=== PATIENT | female | born 1985 | race Caucasian/White ===

== ENCOUNTER → 2020-08-05 09:12 | Outpatient (BNVA) | payer MEDICAID, SELFPAY | PROVIDERS: Family Provider Nurse Practitioner Family; PCP Nurse Practitioner Family; Visit Provider Nurse Practitioner Family | DX: Z20.828 Contact with and (suspected) exposure to other viral communicable diseases (principal); R50.9 Fever, unspecified | CPT/HCPCS: 87400; 87635 ==

== ENCOUNTER → 2021-06-20 10:15 | Outpatient (BNVA) | payer MEDICAID, SELFPAY | PROVIDERS: Family Provider Nurse Practitioner Family; PCP Nurse Practitioner Family; Visit Provider Nurse Practitioner Family | DX: Z12.4 Encounter for screening for malignant neoplasm of cervix (principal) | CPT/HCPCS: 88175 ==

== ENCOUNTER → 2022-04-08 08:58 | Outpatient (BNVA) | payer OTHER, MEDICAID, SELFPAY | PROVIDERS: Family Provider Nurse Practitioner Family; PCP Nurse Practitioner Family; Visit Provider Nurse Practitioner Family | DX: R53.83 Other fatigue (principal); E78.5 Hyperlipidemia, unspecified; R63.5 Abnormal weight gain; D22.9 Melanocytic nevi, unspecified | CPT/HCPCS: 80053; 80061; 84439; 84443; 84481 ==

== ENCOUNTER → 2022-04-17 11:50 | Outpatient (BNVA) | payer OTHER, MEDICAID, SELFPAY | PROVIDERS: Family Provider Nurse Practitioner Family; PCP Nurse Practitioner Family; Visit Provider Nurse Practitioner Family | DX: L98.9 Disorder of the skin and subcutaneous tissue, unspecified (principal) | CPT/HCPCS: 88304 ==

== ENCOUNTER → 2022-07-24 08:48 | Outpatient (BNVA) | payer OTHER, MEDICAID, SELFPAY | PROVIDERS: Family Provider Nurse Practitioner Family; PCP Nurse Practitioner Family; Visit Provider Nurse Practitioner Family | DX: R55 Syncope and collapse (principal); N93.9 Abnormal uterine and vaginal bleeding, unspecified | CPT/HCPCS: 80053; 84439; 84443; 84481; 85025; 88175 ==

== ENCOUNTER 2023-02-07 18:48 | Inpatient (IN) | payer OTHER, SELFPAY ==
[2023-02-07 18:49] VITALS: BP 130/88; PULSE 91; RESP 16; TEMP 36.8; O2SAT 96; BMI 25.8
[2023-02-07] MEDS: OLANZapine 10 mg ODT PO (20:05)
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
[2023-02-07 20:32] LABS: Basophils % 0.3 %; Eosinophils % 0.1 %; Hematocrit 36.8 % (37.0-47.0); Hemoglobin 12.6 g/dL (11.5-15.3); Lymphocytes # 1.1 10^3/uL (0.8-4.8); Lymphocytes % 14.2 %; Mean Corpuscular HGB Conc 34.2 g/dL (30.0-36.0); Mean Corpuscular Hemoglobin 29.6 pg (28.0-34.0); Mean Corpuscular Volume 86.6 fl (81-99); Mean Platelet Volume 9.8 fL (7.4-10.4); Monocytes # 0.4 10^3/uL (0.2-0.9); Monocytes % 5.5 %; Neutrophils # 6.11 10^3/uL (1.8-7.7); Neutrophils % 79.6 %; Nucleated Red Blood Cells % 0 %; Platelet Count 233 10^3/cmm (130-400); Red Blood Count 4.25 10^6/uL (4.1-5.3); Red Cell Distribution Width 12.3 % (12.1-15.1); White Blood Count 7.7 10^3/uL (4.0-10.0)
[2023-02-07 20:33] LABS: Amphetamines Screen Urine Negative (Negative); Barbiturates Screen Urine Negative (Negative); Benzodiazepines Screen Urine Negative (Negative); Cocaine Screen Urine Negative (Negative); Opiate Screen Urine Negative (Negative); PCP Screen Urine Negative (Negative); THC Screen Urine Negative (Negative)
[2023-02-07 21:00] LABS: Anion Gap 17.3 (5-19); Blood Urea Nitrogen 12 mg/dL (6-20); Calcium 8.7 mg/dL (8.5-10.5); Carbon Dioxide 23 mmol/L (22-29); Chloride 106 mmol/L (98-107); Glomerular Filtration Rate 111.3 mL/min (90-130); Glucose 101 mg/dL (65-115); Osmolality Calculated 296 mOsm/kg (285-295); Potassium 3.3 mmol/L (3.5-5.1); Salicylate 0.4 mg/dL (3-10); Sodium 143 mmol/L (136-145); Thyroid Stimulating Hormone 0.73 uIU/mL (0.27-4.20)
[2023-02-07 21:03] LABS: Acetaminophen < 5.0 ug/mL (10-30)
--- NOTE | 2023-02-07 21:05 | PC.NURSE ---
Pt served with Copy of 96 Hour Hold rights by this nurse and security. Pt at bedside. 96 Hour Hold explained in detail and many questions answered. Pt placed in psych scrubs and belongings given to 1:1 sitter at bedside.
[2023-02-07 22:14] VITALS: BP 130/76; PULSE 82; RESP 16; O2SAT 99
[2023-02-07 22:44] VITALS: BP 108/76; PULSE 84; RESP 18; TEMP 36.8; O2SAT 99
[2023-02-08 06:00] VITALS: BP 119/74; PULSE 73; RESP 20; TEMP 36.7; O2SAT 98
[2023-02-08] MEDS: hyDROXYzine 25 mg Capsule 50 MG PO (07:33)
--- NOTE | 2023-02-08 07:38 | PC.NURSE ---
PRN VISTARIL 50 MG GIVEN PO PER PT C/O ANXIETY...TEARFUL IN ROOM, ROCKING AND CRYING, SAYING I DON'T KNOW WHY I'M HERE! STAFF ATTEMPTED TO ENCOURAGE PATIENT SHE IS IN A SAFE PLACE, WE ARE HERE TO TAKE CARE OF HER. STAFF WILL CONT TO MONITOR CLOSELY
--- NOTE | 2023-02-08 07:49 | PC.NURSE ---
during shift assessment, staff observed patient to be wearing 2 rings & a bracelet, all which are not allowed on unit. staff removed bracelet, then later observed that patient had taken her 2 rings off & placed them on the bed. staff removed the rings & placed them along with the bracelet in a bag with patient label & put in safe. items were not removed when patient admitted on the unit during night club manager
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
--- NOTE | 2023-02-08 09:31 | PC.NURSE ---
pt continues to go into other patients rooms, when asked to vacate room 127 pt refused calling out to mother, sister. deep, my friends come get me, help me. attempts to explain reasoning behind the importance of not going into other patient rooms pt became verbal upset an continued to refuse even when i informed her that i would have to get security. pt stated she did not care to bring on security . i left pt in room went to nurses station Rakel hollins and myself at that time went down to room and pt vacated room after multiple times asking her to leave. pt left room appearing to be very agitated stomping down hallway went into her room at that time.
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
--- NOTE | 2023-02-08 12:13 | PC.NURSE ---
while [facility] staff was exiting the double doors out of NPU, this patient charged the door to exit with staff member. Staff member from [facility] quickly responded and stood in the doorway preventing patient from exiting unit, staff x2 immediately intervened, came down and stood between [facility] staff & patient, asked patient to back away from exit door and return to her room. patient complied with staff request, but cont to be verbally aggressive with staff, refused PRN medication offered. This nurse notified Dr. Malin & NPU clerical manager about incident. cue selector Taylor also notified, staff plans to move patient to [facility], away from double doors.
--- NOTE | 2023-02-08 12:22 | PC.NURSE ---
pt requested shower box and change of clothes, when coming out of nurses station doorway pt asked where it was, i took one step to show pt where shower room door was, part of my body and foot still in doorway pt rushed past me partially in nurses station, pt stopped by kim edwards and myself. pt yelled across nurses station to other patient they are all liars. pt left nurses station went into shower.
[2023-02-08 14:00] VITALS: BP 95/59; PULSE 83; RESP 18; TEMP 36.3; O2SAT 97
[2023-02-08] MEDS: diphenhydrAMINE 50 mg/mL SDV 1mL IM (14:20)
[2023-02-08] MEDS: haloperidol inj 5 mg/mL INJ 1 mL IM (14:20)
[2023-02-08] MEDS: LORazepam 2 mg/mL INJ 1 mL IM (14:20)
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
--- NOTE | 2023-02-08 23:45 | PC.NURSE ---
pt stated she may need something for anxiety and sleep, suggested vistaril and trazodone, when pulled and attemped to give to pt, she refused, stated Y'all offered me that yesterday, but i'm ok now both meds wasted in Pyxis.
[2023-02-09] MEDS: OLANZapine 5 mg ODT PO ×2 (01:41→18:53)
[2023-02-09] MEDS: trazodone 50 mg Tablet PO ×2 (01:59→21:24)
--- NOTE | 2023-02-09 02:08 | PC.NURSE ---
pt is screaming yelling, stating she's scared, thinking somethingis wrong with her , zydis and trazodone given. pt states she's afraid to fall asleep. they are in my head but couldn't say who.
--- NOTE | 2023-02-09 02:55 | PC.NURSE ---
pt continues to have nightmares, kicking in the bed and yelling in the bed, they didn't get to me
[2023-02-09 06:00] VITALS: BP 110/76; PULSE 82; RESP 16; O2SAT 100
--- NOTE | 2023-02-09 13:53 | P.NPUPN_ITS ---
Subjective NPU Subjective: Patient presented today continuing to have some issues of guardedness and difficulty interacting with this literary writer but we were able to have a short, concise but effective conversation about her stay. We restarted her Abilify 10 mg p.o. every morning and she was agreeable to take the medication at this time. She was thankful for being given some space and reported feeling a little better and less paranoid. Mental Status Exam MSE Comments: This a well-nourished, well-developed white female in hospital scrubs with improving hygiene/grooming and improving eye contact. No abnormal movements except for mild psychomotor agitation. More cooperative with exam and in mild to moderate distress. Speech was slightly decreased rate and volume. Mood described as okay, affect less irritable and guarded. Thought process organized. Thought content: Patient did not answer questions about lethality but had no self or outwardly directed aggression. No delusions reported and continued paranoia and persecutory thinking noted. No auditory or visual hallucinations reported but less internal preocupation noted. Attention and concentration are limited but improving and memory is appearing a little more reliable but none were formally tested. She is alert and oriented ?3. Insight, judgment and impulse control are impaired. 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 1. Continue current medications. 2. Restarted Abilify 10 mg p.o. every morning with the ultimate goal of the long-acting injectable. 3. Recommending outpatient therapist and psychiatrist. 4. Encourage individual, group and milieu therapy. 5. Continue every 15 minute checks for safety. Involuntary Hold Information 96 Hour Hold: 96 Hour Involuntary Admission: Yes 96 Hour Hold Ending Date: 02/12/23 96 Hour Hold Ending Time: 00:01 Attestations NPU Medical Necessity Statement*: Inpatient hospitalization is medically necessary and the clinically appropriate intervention at this time. Likely length of stay 5-8 days. Coding Level of Care Code Acute Code for Chg Fwd Diagnoses Acute exacerbation of psychosis F29 Paranoia F22
[2023-02-09 14:00] VITALS: RESP 17
[2023-02-09] MEDS: ARIPiprazole 10 mg Tablet PO (15:08)
--- NOTE | 2023-02-09 15:08 | PC.NURSE ---
Deli Associate Delay Patient refused to take abilify at scheduled time and stated, I want to talk to my first because he doesn't really care for that. Talked to patient about benefits of medication and came to an agreement that after she talked to her she would take it. Patient later took medication PO.
[2023-02-09 21:14] VITALS: BP 115/80; PULSE 93; RESP 16; TEMP 36.4; O2SAT 98
[2023-02-09] MEDS: hyDROXYzine 25 mg Capsule 50 MG PO (21:24)
[2023-02-10 06:00] VITALS: BP 100/56; PULSE 100; RESP 16; TEMP 36.9; O2SAT 98
--- NOTE | 2023-02-10 06:28 | PC.NURSE ---
vistaril and trazodone given at bedtime. pt slept most of night. woke up at 0500 asking for something to help her sleep. advised sleep meds aren't given so patient is able to program during the day. patient appeared upset. She is in her room resting at this time.
[2023-02-10] MEDS: ARIPiprazole 10 mg Tablet PO (08:40)
--- NOTE | 2023-02-10 13:48 | P.NPUPN_ITS ---
Subjective NPU Subjective: Patient presented today reporting that she is feeling a little better. She was talking about having nightmares and was requesting having her sleep medication but it was still daylight. We discussed her adding prazosin 1 mg p.o. nightly to her medication after discussing the risks, benefits and alternatives and she understood and agreed to proceed as is documented in this note. She then got up and walked towards the nurses station and appeared to collapse to the ground and had what appeared to be seizure-like movements but appropriate evaluation with EKG and vitals suggested a anxiety episode. Mental Status Exam MSE Comments: This a well-nourished, well-developed white female in hospital scrubs with improving hygiene/grooming and improving eye contact. No abnormal movements except for mild psychomotor agitation and some sort of tonic-clonic movements most likely functional behavior. More cooperative with exam and in mild to extreme distress. Speech was slightly decreased rate and volume. Mood described as okay, affect less irritable and guarded. Thought process organized. Thought content: Patient denied suicidal or homicidal ideations. No delusions reported and continued paranoia and persecutory thinking noted. No auditory or visual hallucinations reported but less internal preocupation noted. Attention and concentration are limited but improving and memory is appearing a little more reliable but none were formally tested. She is alert and oriented ?3. Insight, judgment and impulse control are impaired. Vitals/I&O/Wt Last Vital Signs Temp 98.4 F 02/10/23 06:00 Pulse 100 02/10/23 06:00 Resp 16 02/10/23 06:00 BP 100/56 02/10/23 06:00 Pulse Ox 98 02/10/23 06:00 O2 Del Method 02/10/23 06:00 Data NPU 02/07/23 20:20 02/07/23 20:20 A&P Assessment and plan (1) Acute exacerbation of psychosis: (2) Paranoia: Plan This is a 37-year-old white female who was seen in 2019 for her second episode of aries/hypomania who presents again psychotic and resistant to any interventions. 1. Continue current medications. 2. Restarted Abilify 10 mg p.o. every morning with the ultimate goal of the long-acting injectable. 3. Recommending outpatient therapist and psychiatrist. 4. Encourage individual, group and milieu therapy. 5. Continue every 15 minute checks for safety. 6. We will submit a 21-day hold paperwork tomorrow. Involuntary Hold Information 96 Hour Hold: 96 Hour Involuntary Admission: Yes 96 Hour Hold Ending Date: 02/12/23 96 Hour Hold Ending Time: 00:01 Attestations NPU Medical Necessity Statement*: Inpatient hospitalization is medically necessary and the clinically appropriate intervention at this time. We will monitor medi cations and make changes as indicated. Likely length of stay 5-8 days. Coding Level of Care Code Acute Code for Chg Fwd Diagnoses Acute exacerbation of psychosis F29 Paranoia F22
[2023-02-10 14:00] VITALS: RESP 16
[2023-02-10 18:40] VITALS: BP 132/84; PULSE 100; RESP 16; TEMP 36.5; O2SAT 99
--- NOTE | 2023-02-10 18:44 | ECG_ITS ---
[facility] Test Date: 2023-02-10 Pat Name: Yeny Forbes Department: Room: 153 Gender: Female Comp Field Case Manager: : [id number] Requested By: Brenton Malin Order Number: [id number] Jeff MD: Juani Finn M.D. Measurements Intervals [place] Rate: 84 P: 68 SC: 141 QRS: 21 QRSD: 102 T: 64 QT: 367 QTc: 434 Interpretive Statements SINUS RHYTHM WITH SINUS ARRHYTHMIA POSSIBLE LEFT ATRIAL ENLARGEMENT [-0.1mV P-WAVE IN V1/V2] INCOMPLETE RIGHT BUNDLE BRANCH BLOCK [90+ ms QRS DURATION, TERMINAL R IN V1/V2, 40+ ms S IN I/aVL/V4/V5/V6] No previous ECG available for comparison Electronically Signed On 02-10-2023 23:56:09 CDT by Juani Finn M.D. [id number]
[2023-02-10 18:45] VITALS: BP 136/86; PULSE 88; O2SAT 99
--- NOTE | 2023-02-10 18:54 | PC.NURSE ---
At approximately 1835 pt was walking in the esposito near the [facility] nurses station. Staff noted pt started turning slowly and getting lower compared to the level of the counter. When staff exited the nurses station, the pt was almost sitting on the floor with her legs crossed saying she wanted to get to the phone to make a call. Staff helped the pt to sit fully on the floor. She sat there, then bent forward with her head almost to her knees. Pt said she wanted to go home to her and her family. Two staff assisted the pt to sit on the bench across from [facility]. She kept leaning backwards saying she needed help. Vital signs checked 132/84 pulse started at 148 but came down to 100. Respirations 16, O2 sat 99; temp 97.7 ax. Pt said again she wanted to go home to her and her kids. Pt noted to be shaking at times and involuntary twitching of arms and abd noted. Pt assisted to the floor; pillow placed under her head. Dr. Malin here. Order received for stat EKG. Dr. Malin shared he thought th pt was having a panic attack; said he had recently spoke with her and she had been okay. Pt remained resting on the floor till after EKG completed. She was assisted to a sitting position by staff and then onto her feet and was taken back to her room by two staff. Pt resting in bed. Respirations even and unlabored. Pt was able to confirm she had visited with her earlier; didn't really respond unless staff requested her to make one. Pt was instructed to change her positions slowly and sit at her bedside before attempting to rise for safety. She verbalized her understanding. Reassurance provided. Pt provided cold beverage per request and took a drink. Pt again reminded to establish her equilibrium before attempting to rise, and if she wasn't able to do that, she should call out for help. Pt again verbalized her understanding.
[2023-02-10] MEDS: hyDROXYzine 25 mg Capsule 50 MG PO (20:17)
[2023-02-10] MEDS: trazodone 50 mg Tablet PO (20:17)
--- NOTE | 2023-02-10 20:17 | PC.NURSE ---
Patient reports anxiety with a rating of 10/10 related to loud noises on the unit. States she feels like running. Vistaril offered and taken. Patient also requesting medication to promote rest. Trazodone given as ordered. Moved patient to north side to reduce anxiety related to loud peers.
[2023-02-10 22:00] VITALS: BP 112/71; PULSE 89; RESP 18; TEMP 36.6; O2SAT 94
--- NOTE | 2023-02-10 23:00 | PC.NURSE ---
Patient resting quietly in bed with eyes closed at this time. No further behavior noted since prn's given. No signs of distress noted.
[2023-02-11 06:00] VITALS: BP 116/77; PULSE 102; RESP 15; TEMP 36.9; O2SAT 97
[2023-02-11] MEDS: ARIPiprazole 10 mg Tablet PO (09:33)
--- NOTE | 2023-02-11 13:29 | W.PM.NPUPNS ---
Subjective NPU Subjective: Patient presented today reporting that she is feeling better than yesterday and looking a little better. We discussed her continuing to take the medication when she agreed. We also discussed the risks, benefits and alternatives of her switching to the Abilify Maintena and she understood and agreed to proceed as is documented in this note. We discussed about doing so she would avoid the repeat hospitalization that nonadherence has likely caused. And we discussed the Abilify Maintena moving to every 2 months possibly as early as March. Mental Status Exam MSE Comments: This a well-nourished, well-developed white female in hospital scrubs with improving hygiene/grooming and improving eye contact. No abnormal movements. More cooperative with exam and in no acute distress. Speech was more normal rate and volume. Mood described as better, affect congruent. Thought process organized. Thought content: Patient denied suicidal or homicidal ideations. No delusions reported and less paranoia and persecutory thinking noted. No auditory or visual hallucinations reported. Attention and concentration are improving and memory is appearing more reliable but none were formally tested. She is alert and oriented ?3. Insight appears to be improving and impulse control is limited, but improving. Vitals/I&O/Wt Last Vital Signs Temp 98.5 F 02/11/23 06:00 Pulse 102 H 02/11/23 06:00 Resp 15 02/11/23 06:00 BP 116/77 02/11/23 06:00 Pulse Ox 97 02/11/23 06:00 O2 Del Method 02/11/23 06:00 Data NPU 02/07/23 20:20 02/07/23 20:20 A&P Assessment and plan (1) Acute exacerbation of psychosis: (2) Paranoia: Plan This is a 37-year-old white female who was seen in 2019 for her second episode of aries/hypomania who presents again psychotic and resistant to any interventions. 1. Continue current medications. 2. Restarted Abilify 10 mg p.o. every morning. Initiate Abilify maintainer 400 mg IM q. monthly. 3. Recommending outpatient therapist and psychiatrist. 4. Encourage individual, group and milieu therapy. 5. Continue every 15 minute checks for safety. 6. We will submit a 21-day hold paperwork tomorrow. Involuntary Hold Information 96 Hour Hold: 96 Hour Involuntary Admission: Yes 96 Hour Hold Ending Date: 02/12/23 96 Hour Hold Ending Time: 00:01 Attestations NPU Medical Necessity Statement*: Inpatient hospitalization is medically necessary and the clinically appropriate intervention at this time. We will monitor medications and make changes as indicated. Likely length of stay 4-7 days. Coding Level of Care Code Acute Code for Chg Fwd Diagnoses Acute exacerbation of psychosis F29 Paranoia F22
[2023-02-11 14:00] VITALS: BP 121/84; PULSE 115; RESP 20; TEMP 36.9; O2SAT 96
[2023-02-11] MEDS: ARIPiprazole Maintena 400 MG IM (18:48)
[2023-02-11] MEDS: prazosin 1 mg Capsule PO (20:34)
[2023-02-11 22:00] VITALS: BP 113/75; PULSE 87; RESP 16; TEMP 36.6; O2SAT 98
[2023-02-11] MEDS: trazodone 50 mg Tablet PO (23:43)
[2023-02-12] MEDS: hyDROXYzine 25 mg Capsule 50 MG PO ×2 (01:22→21:26)
--- NOTE | 2023-02-12 01:23 | PC.NURSE ---
PRN vistaril given as ordered per pt request.
[2023-02-12 06:00] VITALS: RESP 15
[2023-02-12] MEDS: ARIPiprazole 10 mg Tablet PO (09:47)
[2023-02-12 14:00] VITALS: BP 111/77; PULSE 96; RESP 16; TEMP 36.6; O2SAT 98
--- NOTE | 2023-02-12 18:57 | P.NPUPN_ITS ---
Subjective NPU Subjective: Patient presented today reporting that she is feeling better. We discussed her clearly making a significant improvement. She is able to identify the critical need for the medication and endorses not realizing how much the medication helped her. She reports a plan to continue on the injection and we discussed the likelihood of discharge on Wednesday with arrangements for outpatient services including obtaining the injection for next month. Mental Status Exam MSE Comments: This a well-nourished, well-developed white female in hospital scrubs with improving hygiene/grooming and improving eye contact. No abnormal movements. More cooperative with exam and in no acute distress. Speech was more normal rate and volume. Mood described as better, affect congruent. Thought process organized. Thought content: Patient denied suicidal or homicidal ideations. No delusions reported and less paranoia and persecutory thinking noted. No auditory or visual hallucinations reported. Attention and co ncentration are improving and memory is appearing more reliable but none were formally tested. She is alert and oriented ?3. Insight and judgment appear to be improving and impulse control is limited, but improving. Vitals/I&O/Wt Last Vital Signs Temp 98.0 F 02/12/23 22:00 Pulse 89 02/12/23 22:00 Resp 16 02/12/23 22:00 BP 111/72 02/12/23 22:00 Pulse Ox 96 02/12/23 22:00 O2 Del Method 02/12/23 22:00 Data NPU 02/07/23 20:20 02/07/23 20:20 A&P Assessment and plan (1) Acute exacerbation of psychosis: (2) Paranoia: Plan This is a 37-year-old white female who was seen in 2019 for her second episode of aries/hypomania who presents again psychotic and resistant to any interventions. 1. Continue current medications. 2. Restarted Abilify 10 mg p.o. every morning. Initiate Abilify Maintena 400 mg IM q. monthly 02/11/2023. 3. Recommending outpatient therapist and psychiatrist. 4. Encourage individual, group and milieu therapy. 5. Continue every 15 minute checks for safety. 6. 21-day hold paperwork submitted with hearing 02/17/2023. We discussed the likelihood of discharge prior to hearing. Involuntary Hold Information 96 Hour Hold: 96 Hour Involuntary Admission: Yes 96 Hour Hold Ending Date: 02/12/23 96 Hour Hold Ending Time: 00:01 Attestations NPU Medical Necessity Statement*: Inpatient hospitalization is medically necessary and the clinically appropriate intervention at this time. We will monitor medications and make changes as indicated. Likely length of stay 3 to 5 days. Coding Level of Care Code Acute Code for Chg Fwd Diagnoses Acute exacerbation of psychosis F29 Paranoia F22
[2023-02-12] MEDS: prazosin 1 mg Capsule PO (20:46)
[2023-02-12] MEDS: trazodone 50 mg Tablet PO (21:26)
[2023-02-12 22:00] VITALS: BP 111/72; PULSE 89; RESP 16; TEMP 36.7; O2SAT 96
[2023-02-13] MEDS: acetaminophen 325 mg Tablet 650 MG PO (03:46)
[2023-02-13 06:00] VITALS: RESP 16
[2023-02-13] MEDS: ARIPiprazole 10 mg Tablet PO (09:05)
--- NOTE | 2023-02-13 13:57 | P.NPUPN_ITS ---
Subjective NPU Subjective: Patient presented today reporting that she has talked to her and he has done some research on the medication and appointments etc. she reports she is feeling less stressed because she identifies that this is necessary being here as well as treating her psychosis long-term. We discussed her limited recollection of how bad things got before she was on the medication. She reports she is eating better and starting to sleep much better. Mental Status Exam MSE Comments: This a well-nourished, well-developed white female in hospital scrubs with improving hygiene/grooming and improving eye contact. No abnormal movements. More cooperative with exam and in no acute distress. Speech was m ore normal rate and volume. Mood described as better, affect congruent. Thought process organized. Thought content: Patient denied suicidal or homicidal ideations. No delusions reported and less paranoia and persecutory thinking noted. No auditory or visual hallucinations reported. Attention and concentration are improving and memory is appearing more reliable but none were formally tested. She is alert and oriented ?3. Insight and judgment appear to be improving and impulse control is limited, but improving. Vitals/I&O/Wt Last Vital Signs Temp 98.0 F 02/12/23 22:00 Pulse 89 02/12/23 22:00 Resp 16 02/13/23 06:00 BP 111/72 02/12/23 22:00 Pulse Ox 96 02/12/23 22:00 O2 Del Method 02/12/23 22:00 Data NPU 02/07/23 20:20 02/07/23 20:20 A&P Assessment and plan (1) Acute exacerbation of psychosis: (2) Paranoia: Plan This is a 37-year-old white female who was seen in 2019 for her second episode of aries/hypomania who presents again psychotic and resistant to any interventions. 1. Continue current medications. 2. Restarted Abilify 10 mg p.o. every morning. Initiate Abilify Maintena 400 mg IM q. monthly 02/11/2023. 3. Recommending outpatient therapist and psychiatrist. 4. Encourage individual, group and milieu therapy. 5. Continue every 15 minute checks for safety. 6. 21-day hold paperwork submitted with hearing 02/17/2023. We discussed the likelihood of discharge prior to hearing. Involuntary Hold Information 96 Hour Hold: 96 Hour Involuntary Admission: Yes 96 Hour Hold Ending Date: 02/12/23 96 Hour Hold Ending Time: 00:01 Attestations NPU Medical Necessity Statement*: Inpatient hospitalization is medically necessary and the clinically appropriate intervention at this time. We will monitor medications and make changes as indicated. Likely length of stay 2-4 days. Coding Level of Care Code Acute Code for Chg Fwd Diagnoses Acute exacerbation of psychosis F29 Paranoia F22
[2023-02-13 14:00] VITALS: BP 97/68; PULSE 88; RESP 20; TEMP 36.3; O2SAT 98
--- NOTE | 2023-02-13 16:20 | NPU.GN ---
[facility] Group Topic:Art theraoy General Mood of Group good, patient participated in group and interacted well with staff and other patients
--- NOTE | 2023-02-13 16:21 | NPU.GN ---
[facility] Topic:Art therapy General Mood of Group good- patient participated in group, coloring and interacted well staff and other patients
[2023-02-13 19:53] VITALS: BP 108/73; PULSE 87; RESP 18; TEMP 36.9; O2SAT 100
[2023-02-13] MEDS: hyDROXYzine 25 mg Capsule 50 MG PO (20:37)
[2023-02-13 22:00] VITALS: BP 108/73; PULSE 87; TEMP 36.9
[2023-02-13] MEDS: trazodone 50 mg Tablet PO (22:16)
[2023-02-14] MEDS: OLANZapine 5 mg ODT PO (01:03)
[2023-02-14 06:00] VITALS: BP 99/70; PULSE 81; RESP 15; TEMP 36.3
--- NOTE | 2023-02-14 09:42 | P.NPUPN_ITS ---
Subjective NPU Subjective: Patient presented today reporting that she was feeling better. We discussed meeting with the treatment team tomorrow to make sure everything was arranged for discharge. She continues to report that she gets how important her taking medication is now and has every intention of continuing the injection. We discussed the overlap with oral with Abilify. We discussed the plan for discharge tomorrow. Mental Status Exam MSE Comments: This a well-nourished, well-developed white female in hospital s crubs with improving hygiene/grooming and improving eye contact. No abnormal movements. More cooperative with exam and in no acute distress. Speech was more normal rate and volume. Mood described as pretty good, affect congruent. Thought process organized. Thought content: Patient denied suicidal or homicidal ideations. No delusions reported and less paranoia and persecutory thinking noted. No auditory or visual hallucinations reported. Attention and concentration are improving and memory is appearing more reliable but none were formally tested. She is alert and oriented ?3. Insight and judgment appear to be improving and impulse control is limited, but improving. Vitals/I&O/Wt Last Vital Signs Temp 97.4 F L 02/14/23 06:00 Pulse 81 02/14/23 06:00 Resp 15 02/14/23 06:00 BP 99/70 02/14/23 06:00 Pulse Ox 100 02/13/23 19:53 O2 Del Method 02/14/23 06:00 Weight last 48 hrs Weight 76.771 kg Weight 76.771 kg Data NPU 02/07/23 20:20 02/07/23 20:20 A&P Assessment and plan (1) Acute exacerbation of psychosis: (2) Paranoia: Plan This is a 37-year-old white female who was seen in 2019 for her second episode of aries/hypomania who presents again psychotic and resistant to any interventions. 1. Continue current medications. 2. Restarted Abilify 10 mg p.o. every morning. Initiated Abilify Maintena 400 mg IM q. monthly 02/11/2023. 3. Recommending outpatient therapist and psychiatrist. 4. Encourage individual, group and milieu therapy. 5. Continue every 15 minute checks for safety. 6. 21-day hold paperwork submitted with hearing 02/17/2023. Tentative plan for discharge tomorrow. Involuntary Hold Information 96 Hour Hold: 96 Hour Involuntary Admission: Yes 96 Hour Hold Ending Date: 02/12/23 96 Hour Hold Ending Time: 00:01 Attestations NPU Medical Necessity Statement*: Inpatient hospitalization is medically necessary and the clinically appropriate intervention at this time. We will monitor medications and make changes as indicated. Likely length of stay 1-3 days. Coding Level of Care Code Acute Code for Chg Fwd Diagnoses Acute exacerbation of psychosis F29 Paranoia F22
[2023-02-14 14:00] VITALS: BP 92/64; PULSE 80; RESP 18; TEMP 36.7; O2SAT 98
[2023-02-14 19:58] VITALS: BP 103/69; PULSE 85; RESP 16; TEMP 36.4; O2SAT 100
[2023-02-14] MEDS: ARIPiprazole 10 mg Tablet PO (21:06)
[2023-02-14] MEDS: prazosin 1 mg Capsule PO (21:07)
[2023-02-14] MEDS: trazodone 50 mg Tablet PO (23:01)
[2023-02-15 02:04] VITALS: BP 57/45; PULSE 47; RESP 18; TEMP 36.8; O2SAT 90
[2023-02-15 02:04] LABS: Glucose Point of Care 139 mg/dL (70-110)
[2023-02-15 02:05] VITALS: BP 82/62; PULSE 87; O2SAT 100
[2023-02-15 02:06] VITALS: BP 97/65; PULSE 90; O2SAT 98
--- NOTE | 2023-02-15 02:22 | ECG_ITS ---
[facility] Test Date: 2023-02-15 Pat Name: Yeny Forbes Department: Room: 129 Gender: Female Inside Steward/Stewardess: : 1985 Requested By: Brenton Malin Order Number: [id number] Jeff MD: Chirag Reis M.D. Measurements Intervals [place] Rate: 65 P: 64 UT: 145 QRS: 35 QRSD: 98 T: 48 QT: 385 QTc: 403 Interpretive Statements SINUS RHYTHM Compared to ECG 02/10/2023 18:44:56 Sinus arrhythmia no longer present Incomplete right bundle-branch block no longer present Electronically Signed On 02-15-2023 13:06:59 CDT by Chirag Reis M.D. [id number]
--- NOTE | 2023-02-15 02:27 | PC.NURSE ---
at 2300 pt states unable to sleep, trazodone given.
--- NOTE | 2023-02-15 02:27 | PC.NURSE ---
at 0140 pt at nurse's station requesting Vistaril, stating she's thinking about discharge and can't sleep. Vistaril not given. RN returns to window, pt sitting on bench and walks to window, stated she feels dizzy, RN on unit to assess pt and during conversation she falling in RN arms, RN called for PLASTIC DOLLS MOLD FILLER to help and for energy systems laboratory director, all assisted immediated and pt sat on floor safely. Pt pale, briefly unconscious approximately 5-10 seconds, respiratory normal, vital signs taken Blood Sugar 139, 57/45, P47, R18, 98.3, 90%, manual bp 82/62, P87, third vitals 97/65, P87, R18, 98%, pt nausea, dry heaves, pt reports she has passed out before, has history of hypoglycemia, mitral valve prolapse. pt reports she hasn't eaten much today or had much to drink. Encouraged pt to drink plenty of water and eat meals and snack when needed. pt reports feeling better and requesting something to eat, given a sandwich, [place] juice and water. Pt color is improving. Poured Concrete Wall Technician on unit, reported episode. pt requesting to lay down, escorted to room abd discussed to ask staff of needs or concerns. MD notified and EKG ordered and completed. EKG reports reads Normal Sinus Rhythm, Normal ECG.
[2023-02-15 06:00] VITALS: BP 99/66; PULSE 90; RESP 16; TEMP 36.6; O2SAT 97
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
[2023-02-15 11:07] VITALS: BP 99/66; PULSE 90; RESP 16; TEMP 36.6; O2SAT 97
== END 2023-02-15 11:49 | disposition home or self-care (01) | DRG 885 ==
LOC: ER 20:15 → NP 22:34
PROVIDERS: Admitting Provider Psychiatry & Neurology Psychiatry; Emergency Provider General Practice; PCP Nurse Practitioner Family; Visit Provider Psychiatry & Neurology Psychiatry
DX: F23 Brief psychotic disorder (principal); R45.851 Suicidal ideations; F22 Delusional disorders; F31.9 Bipolar disorder, unspecified
CPT/HCPCS: 36415; 36416; 80048; 80306; 80307; 82962; 84443; 84702; 85025; 93005; 96372; 97150; 97165; 99285; J1200; J1630; J2060

== ENCOUNTER → 2023-03-04 11:38 | Outpatient (BNVA) | payer OTHER, SELFPAY | PROVIDERS: PCP Nurse Practitioner Family; Visit Provider Nurse Practitioner | DX: R73.9 Hyperglycemia, unspecified (principal) | CPT/HCPCS: 83036 ==

== ENCOUNTER → 2023-04-13 10:47 | Outpatient (BNVA) | payer OTHER, MEDICAID, SELFPAY | PROVIDERS: PCP Nurse Practitioner Family; Visit Provider Nurse Practitioner Psychiatric/Mental Health | DX: Z03.89 Encounter for observation for other suspected diseases and conditions ruled out (principal) | CPT/HCPCS: 80306 ==

== ENCOUNTER → 2023-05-05 14:25 | Outpatient (BNVA) | payer OTHER, SELFPAY | PROVIDERS: PCP Nurse Practitioner Family; Visit Provider Nurse Practitioner | DX: R30.0 Dysuria (principal); N39.0 Urinary tract infection, site not specified | CPT/HCPCS: 81000 ==

== ENCOUNTER 2025-03-05 10:08 | Inpatient (IN) | payer BC, MEDICAID, SELFPAY ==
[2025-03-05 10:16] VITALS: BP 126/82; PULSE 83; RESP 20; O2SAT 98
[2025-03-05 10:43] LABS: Basophils % 0.3 %; Eosinophils % 0.3 %; Hematocrit 37.1 % (36-47); Lymphocytes # 0.9 10^3/uL (0.8-4.8); Lymphocytes % 15.1 %; Mean Corpuscular Hemoglobin 30.6 pg (27-33); Mean Platelet Volume 9.4 fL (7.4-10.4); Monocytes # 0.2 10^3/uL (0.2-0.9); Monocytes % 3.3 %; Neutrophils # 4.93 10^3/uL (1.8-7.7); Neutrophils % 80.7 %; Nucleated Red Blood Cells % 0 %; Platelet Count 235 10^3/cmm (157-399); Red Blood Count 4.12 10^6/uL (3.85-5.65); Red Cell Distribution Width 11.9 % (12.1-15.1); White Blood Count 6.11 10^3/uL (3.29-11.43)
--- NOTE | 2025-03-05 10:58 | W.ED.PSYCHS ---
HPI - Psych General: Chief Complaint: Psychiatric Symptoms Stated Complaint: MHE Time Seen by Provider: 03/05/25 10:22 History of Present Illness: 40-year-old female presents emergency room complaining of depression and anxiety. States she is not her sure who to trust. She has been having some visual hallucinations she says colors represent types of people and she sees various people walking around. She also had some suicidal ideation specifically involving a firearm she does have access to a firearm in her home. she has friends here with her they were going to try to remove it from her home but they are not sure where it is at. Patient relates that she previously had been admitted to the [facility] was started on a long-term injectable medication but she never had a follow-up visit she states she went and seen a different caregiver and they told her she probably did not have bipolar or psychosis and the encouraged her evidently to stop taking the medicine per her report. She followed up with counseling but was not on the medication. She is currently on buspirone Adderall fluoxetine lorazepam as needed. Reviewing hospital discharge from February 2023 patient been started on Invega. She had a single dose prior to that she had been on Abilify as she has not been taking it since she was discharged then. Related Data Home Medications ?Medication ?Instructions ?Recorded ?Confirmed albuterol sulfate 90 mcg/actuation 2 puff inhalation .Q4-6H 03/05/25 03/05/25 aerosol inhaler buspirone 15 mg tablet 15 mg PO BID 03/05/25 03/05/25 dextroamphetamine-amphetamine 5 mg 5 mg PO BID 03/05/25 03/05/25 tablet fluoxetine 40 mg capsule 40 mg PO DAILY 03/05/25 03/05/25 lorazepam 0.5 mg tablet 0.5 mg PO DAILY 03/05/25 03/05/25 Allergies Allergy/AdvReac Type Severity Reaction Status Date / Time codeine Allergy Intermediate sick Verified 05/05/23 14:10 Opioids - Morphine Analogues Allergy Intermediate sick Verified 05/05/23 14:10 Review of Systems Const: Denies: fever(s) or chills Card: Denies: chest pain Resp: Denies: dyspnea GI: Denies: abdominal pain : Denies: dysuria, urinary frequency or urinary urgency Musc: Denies: neck pain or back pain Skin/Breast: Denies: rash [facility] ED PFSH: Medical History Deafness in left ear Bipolar depression Vertigo Surgical History H/O right wrist surgery Hx of section Social History Smoking and tobacco/nicotine status: never used tobacco/nicotine Second hand smoke exposure: No Alcohol intake: never Substance/Drug Use: never Physical Exam Const: GENERAL APPEARANCE: cooperative ORIENTATION/CONSCIOUSNESS: Yes awake, Yes oriented to person, Yes oriented to place and Yes oriented to time HENMT: COMMON NORMALS: normocephalic, atraumatic and hearing grossly normal bilaterally HEAD & SCALP: normocephalic and atraumatic Resp: COMMON NORMALS: normal respiratory effort, No retractions, No use of accessory muscles and clear to auscultation bilaterally AUSCULTATION: clear to auscultation bilaterally Cardio: COMMON NORMALS: regular rate, regular rhythm and No murmurs present (Cardio) RATE: regular rate RHYTHM: regular rhythm GI: COMMON NORMALS: Soft to palpation and No hepatosplenomegaly present AUSCULTATION: Yes normoactive bowel sounds PALPATION: Yes Soft to palpation, No Tenderness to palpation present (GI), No Guarding due to palpation present (GI) and Yes No hepatosplenomegaly present Extremity: COMMON NORMALS: normal to inspection, capillary refill normal, no clubbing, cyanosis or edema, no calf tenderness and no pedal edema Neuro: SENSORIUM/ORIENTATION: Yes oriented to person, Yes oriented to place and Yes oriented to time Skin: COMMON NORMALS: no rashes or lesions noted GENERAL SKIN EXAM: no rashes or lesions noted Course Vital Signs: Vital signs: Vital Signs Pulse Rate 83 03/05/25 10:16 Respiratory Rate 20 H 03/05/25 10:16 Blood Pressure 126/82 03/05/25 10:16 Pulse Oximetry 98 03/05/25 10:16 Oxygen Delivery Me thod Room Air 03/05/25 10:16 MDM - Psych Medical Decision Making Patient placed on 96-hour hold for visual hallucinations and suicidal ideation. Medical Records I reviewed the patient's medical records. Lab Data I reviewed the patient's lab results. 03/05/25 10:38 03/05/25 10:38 Laboratory Results WBC 6.11 10^3/uL (3.29-11.43) 03/05/25 10:38 RBC 4.12 10^6/uL (3.85-5.65) 03/05/25 10:38 Hgb 12.60 g/dL (11.27-16.99) 03/05/25 10:38 Hct 37.1 % (36-47) 03/05/25 10:38 MCV 90.0 fl (85-98) 03/05/25 10:38 MCH 30.6 pg (27-33) 03/05/25 10:38 MCHC 34.0 g/dL (30-55) 03/05/25 10:38 RDW 11.9 % (12.1-15.1) L 03/05/25 10:38 Plt Count 235 10^3/cmm (157-399) 03/05/25 10:38 MPV 9.4 fL (7.4-10.4) 03/05/25 10:38 Neut % (Auto) 80.7 % 03/05/25 10:38 Lymph % (Auto) 15.1 % 03/05/25 10:38 [place] % (Auto) 3.3 % 03/05/25 10:38 Eos % (Auto) 0.3 % 03/05/25 10:38 Baso % (Auto) 0.3 % 03/05/25 10:38 Neut # (Auto) 4.93 10^3/uL (1.8-7.7) 03/05/25 10:38 Lymph # (Auto) 0.9 10^3/uL (0.8-4.8) 03/05/25 10:38 [place] # (Auto) 0.2 10^3/uL (0.2-0.9) 03/05/25 10:38 Eos # (Auto) 0.0 10^3/uL (0.0-0.8) 03/05/25 10:38 Baso # (Auto) 0.0 10^3/uL (0.0-0.1) 03/05/25 10:38 Nucleated RBC % (auto) 0 % 03/05/25 10:38 Nucleated RBCs # 0.0 /100WBC 03/05/25 10:38 Sodium 142 mmol/L (136-145) 03/05/25 10:38 Potassium 3.8 mmol/L (3.5-5.1) 03/05/25 10:38 Chloride 109 mmol/L (98-107) H 03/05/25 10:38 Carbon Dioxide 25 mmol/L (22-29) 03/05/25 10:38 Anion Gap 11.8 (5-19) 03/05/25 10:38 BUN 7 mg/dL (6-20) 03/05/25 10:38 Creatinine 0.5 mg/dL (0.5-0.9) 03/05/25 10:38 GFR Calculation 135.3 mL/min (90-130) H 03/05/25 10:38 Glucose 102 mg/dL (65-115) 03/05/25 10:38 Calculated Osmolality 292 mOsm/kg (285-295) 03/05/25 10:38 Calcium 8.6 mg/dL (8.5-10.5) 03/05/25 10:38 Total Bilirubin 0.3 mg/dL (0.15-1.2) 03/05/25 10:38 AST 12 U/L (0-32) 03/05/25 10:38 ALT 11 U/L (0-33) 03/05/25 10:38 Alkaline Phosphatase 59 U/L (35-105) 03/05/25 10:38 Total Protein 6.6 g/dL (6.6-8.7) 03/05/25 10:38 Albumin 4.2 g/dL (3.5-5.2) 03/05/25 10:38 Globulin 2.4 g/dL (1.3-4.6) 03/05/25 10:38 HCG, Qual Negative (Negative) 03/05/25 10:38 Salicylates < 0.3 mg/dL (3-10) L 03/05/25 10:38 Acetaminophen < 5.0 ug/mL (10-30) L 03/05/25 10:38 All radiology interpretation(s) finalized by discharge Discharge Plan Discharge Patient Disposition: Admitted As Inpatient Clinical Impression: Acute exacerbation of psychosis, Bipolar depression, Suicidal ideation Condition: Stable Coding Level of Care Code ED Thread Trimmer for Oliver Wilkes
[2025-03-05 11:00] LABS: Alanine Aminotransferase 11 U/L (0-33); Albumin Level 4.2 g/dL (3.5-5.2); Alkaline Phosphatase 59 U/L (35-105); Anion Gap 11.8 (5-19); Aspartate Amino Transferase 12 U/L (0-32); Blood Urea Nitrogen 7 mg/dL (6-20); Calcium 8.6 mg/dL (8.5-10.5); Carbon Dioxide 25 mmol/L (22-29); Chloride 109 mmol/L (98-107); Creatinine Clr Calc Pharmacy 156.8918; Globulin 2.4 g/dL (1.3-4.6); Glomerular Filtration Rate 135.3 mL/min (90-130); Glucose 102 mg/dL (65-115); Osmolality Calculated 292 mOsm/kg (285-295); Potassium 3.8 mmol/L (3.5-5.1); Sodium 142 mmol/L (136-145); Total Bilirubin 0.3 mg/dL (0.15-1.2); Total Protein 6.6 g/dL (6.6-8.7)
[2025-03-05 11:01] LABS: HCG, Serum Qual Negative (Negative)
[2025-03-05 11:02] LABS: Acetaminophen < 5.0 ug/mL (10-30); Salicylate < 0.3 mg/dL (3-10)
--- NOTE | 2025-03-05 11:42 | PC.NURSE ---
PT REQUESTED THAT FAMILY TAKE BELONGINGS HOME WITH THEM. BELONGINGS INCLUDED THE CLOTHES SHE CAME IN WITH, SHEOS, PURSE, AND PHONE. [employer] AND SECURITY [id number], WITNESSED FAMILY TAKING BELONGINGS.
--- NOTE | 2025-03-05 11:52 | PC.NURSE ---
96 hr rights reviewed with patient @1115 with assistance of [facility] home lending officer Donnie Lyle. All education pertaining to the hold reviewed with patient. Pt's mom and sister were witness to rights being served. Education about visiting hours reviewed with patient and family. Pt copy was left @bedside with patient. Pt requested that the family take her clothing and belongings with them. HS asked that primary nurse also place note in chart regarding this request and for documentation of where pt's belongings went for discharge purposes. Security also present for request of belongings being sent to family. Pt provided a soda. No further needs at this time
--- NOTE | 2025-03-05 12:06 | PC.NURSE ---
Verbal orders given to HS for 2mg PO ativan received from Dr Sims. See MAR for admin from primary RN.
[2025-03-05] MEDS: LORazepam 2 mg Tablet PO (12:18)
[2025-03-05 14:32] VITALS: BP 103/65; PULSE 80; O2SAT 100
[2025-03-05 14:41] VITALS: BP 108/60; PULSE 76; RESP 18; TEMP 36.6; O2SAT 98
[2025-03-05] MEDS: hyDROXYzine 25 mg Capsule 50 MG PO (15:15)
--- NOTE | 2025-03-05 15:15 | PC.NURSE ---
PRN VISTARIL 50 MG GIVEN PO PER PT C/O STATED ANXIETY
[2025-03-05 20:22] VITALS: BP 110/60; PULSE 98; RESP 16; O2SAT 98
[2025-03-05] MEDS: OLANZapine 5 mg ODT PO (20:23)
[2025-03-06 06:00] VITALS: BP 91/59; PULSE 87; RESP 18; O2SAT 100
[2025-03-06] MEDS: hyDROXYzine 25 mg Capsule 50 MG PO ×2 (08:20→21:37)
--- NOTE | 2025-03-06 08:21 | PC.NURSE ---
vistaril Patient requesting medication for my head but denies headache. Says that she is feeling anxious, while running her hands through her hair rapidly. Administered vistaril 50mg PO
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
[2025-03-06 14:00] VITALS: BP 103/76; PULSE 90; RESP 18; TEMP 36.6; O2SAT 95
[2025-03-06] MEDS: acetaminophen 325 mg Tablet 650 MG PO (16:36)
[2025-03-06 20:01] VITALS: BP 83/54; PULSE 88; RESP 18; O2SAT 97
[2025-03-06] MEDS: ARIPiprazole 10 mg Tablet PO (20:40)
[2025-03-06] MEDS: OLANZapine 5 mg ODT PO (20:40)
[2025-03-07 06:00] VITALS: BP 92/59; PULSE 84; RESP 16; O2SAT 99
[2025-03-07] MEDS: ARIPiprazole 10 mg Tablet PO (09:18)
[2025-03-07 14:00] VITALS: BP 110/76; RESP 16; TEMP 36.9; O2SAT 97
--- NOTE | 2025-03-07 15:18 | P.NPUPN_ITS ---
Subjective NPU 2 Subjective: Patient presented today reporting that things were going better. She identified that the Abilify made a difference almost immediately. Her improvement in her affect was identified in note where the 2 mL used staff and was recognizable on direct observation. She reports surrendering to the fact that Abilify is something she really needs to take indefinitely. We discussed some of the issues in play and trying to figure out how to get her the long-acting injectable given her current employment and insurance situation. She denied any side effects of the medication. Mental Status Exam 2 MSE Comments: This a well-nourished, well-developed white female in hospital scrubs with limited hygiene/grooming but appropriate eye contact. No abnormal movements except for mild psychomotor agitation. Mostly cooperative with exam and in mild distress. Speech was slightly decreased rate and volume. Mood described as feeling significantly better, affect congruent and less irritable and guarded. Thought process organized. Thought content: Patient endorsed having some suicidality on admission but denied homicidal ideation, there were no delusions reported but ultimately acknowledged continued paranoia and persecutory thinking which was noted. No auditory or visual hallucinations reported b. Attention and concentration are mostly intact and memory is appearing mostly reliable but none were formally tested. She is alert and oriented ?3. Insight, judgment and impulse control are impaired. Vitals/I&O/Wt Last Vital Signs Temp 98 F 03/06/25 14:00 Pulse 84 03/07/25 06:00 Resp 16 03/07/25 06:00 BP 92/59 03/07/25 06:00 Pulse Ox 99 03/07/25 06:00 O2 Del Method Room Air 03/05/25 14:40 Data NPU 03/05/25 10:38 03/05/25 10:38 A&P Assessment and plan (1) Acute exacerbation of psychosis: (2) Paranoia: (3) Bipolar depression: (4) Suicidal ideation: (5) PTSD (post-traumatic stress disorder): Plan This is a 40-year-old white female who was seen in 2022 for her third episode of aries/hypomania who presents again psychotic but seemingly more open to treatment and the realization that she is in need of every time to her medication. 1. Continue current medications. 2. Restarted Abilify 10 mg p.o. every morning. Plan to return to Abilify Maintena 400 mg IM q. monthly, if we are unable to get her approved for Abilify Asimtufii immediately. 3. Recommending outpatient therapist and psychiatrist. 4. Encourage individual, group and milieu therapy. 5. Continue every 15 minute checks for safety. PDMP PDMP Reviewed: Not Reviewed Involuntary Hold Information 2 Hold Status: Legal Status: 96 Hour Hold Date/Time Hold Expires: 03/09/25 @ 11:15 96 Hour Hold: 96 Hour Involuntary Admission: Yes Attestations NPU 2 Medical Necessity Statement*: Inpatient hospitalization is medically necessary and the clinically appropriate intervention at this time. We will initiate medications and make changes as indicated. Likely length of stay 2-5 days. Coding Level of Care Code Acute Code for g Fwd Diagnoses Acute exacerbation of psychosis F29 Paranoia F22 Bipolar depression F31.9 Suicidal ideation R45.851 PTSD (post-traumatic stress disorder) F43.10
[2025-03-07 19:47] VITALS: BP 108/62; PULSE 89; RESP 18; TEMP 36.4; O2SAT 97
[2025-03-07] MEDS: trazodone 50 mg Tablet PO (20:07)
[2025-03-07] MEDS: hyDROXYzine 25 mg Capsule 50 MG PO (20:07)
[2025-03-07] MEDS: OLANZapine 5 mg ODT PO (22:13)
--- NOTE | 2025-03-07 22:16 | PC.NURSE ---
Pt. stated she was having trouble sleeping. Signee had given pt. a Trazadone and Vistaril earlier in the evening and now gave a Zyprexa. Pt. stated she felt like the Zyprexa makes her tired through the day after taking it at HS. Pt. also stated the Abilify last time she was on it she felt like it caused her not to sleep at HS and that is why she stopped taking it before. Signee let pt. know this was something she needed to let the Dr. know about. Signee will pass this info onto the am nurse.
[2025-03-08 06:00] VITALS: BP 98/59; PULSE 97; RESP 18; O2SAT 97
[2025-03-08] MEDS: ARIPiprazole 10 mg Tablet PO (08:30)
--- NOTE | 2025-03-08 10:04 | PC.NURSE ---
Pt states that she slept good last night. No anxiety or depression reported. No reports of hallucinations. Denies SI/HI. No pain reported. States that she had a BM yesterday and that is her normal.
[2025-03-08 12:48] LABS: Amphetamines Screen Urine Negative (Negative); Barbiturates Screen Urine Negative (Negative); Benzodiazepines Screen Urine Negative (Negative); Cocaine Screen Urine Negative (Negative); Opiate Screen Urine Negative (Negative); PCP Screen Urine Negative (Negative); THC Screen Urine Negative (Negative)
[2025-03-08 14:00] VITALS: BP 111/69; PULSE 84; RESP 16; O2SAT 99
[2025-03-08] MEDS: ARIPiprazole Maintena 400 MG IM (14:28)
--- NOTE | 2025-03-08 14:34 | PC.NURSE ---
Dr. Malin ordered Abilify 400mg IM to be given today. Order placed and medications given to pt in Lt Deltoid. Pt tolerated well.
--- NOTE | 2025-03-08 17:18 | P.NPUPN_ITS ---
Subjective NPU 2 Subjective: Patient presented today reporting that things are going okay. She reports that the concerns that her mother has are based on not being in her life. We agreed that we would have a conversation with her mother tomorrow to determine whether the 21-day hold is necessary or whether her having the injection will be sufficient to move the dial forward and keep her in a psychologically stable place. We discussed that we were on the fence about whether we needed to put her on the extended hold because there are inconsistencies in the reports were receiving some of which are suggesting delusional thoughts driving behaviors and some reports suggest that she has been doing fine. We agreed we would make this determination tomorrow. She denied any side effects of the medications and took the Abilify Maintena injection 400 mg IM after discussion of the risks, benefits and alternatives she understood and agreed to proceed as is documented in this note. Mental Status Exam 2 MSE Comments: This a well-nourished, well-developed white female in hospital scrubs with limited hygiene/grooming but appropriate eye contact. No abnormal movements except for mild psychomotor agitation. Mostly cooperative with exam and in mild distress. Speech was slightly decreased rate and volume. Mood described as feeling significantly better, affect congruent and less irritable and guarded. Thought process organized. Thought content: Patient endorsed having some suicidality on admission but denied homicidal ideation, there were no delusions reported but ultimately acknowledged continued paranoia and persecutory thinking which was noted. No auditory or visual hallucinations reported b. Attention and concentration are mostly intact and memory is appearing mostly reliable but none were formally tested. She is alert and oriented ?3. Insight, judgment and impulse control are impaired. Vitals/I&O/Wt Last Vital Signs Temp 97.6 F 03/07/25 19:47 Pulse 84 03/08/25 14:00 Resp 16 03/08/25 14:00 BP 111/69 03/08/25 14:00 Pulse Ox 99 03/08/25 14:00 O2 Del Method Room Air 03/08/25 06:00 Data NPU 03/05/25 10:38 03/05/25 10:38 A&P Assessment and plan (1) Acute exacerbation of psychosis: (2) Paranoia: (3) Bipolar depression: (4) Suicidal ideation: (5) PTSD (post-traumatic stress disorder): Plan This is a 40-year-old white female who was seen in 2022 for her third episode of aries/hypomania who presents again psychotic but seemingly more open to treatment and the realization that she is in need of every time to her medication. 1. Continue current medications. 2. Restarted Abilify 10 mg p.o. every morning. Plan to return to Abilify Maintena 400 mg IM q. monthly, if we are unable to get her approved for Abilify Asimtufii immediately. Administered Abilify injection today. 3. Recommending outpatient therapist and psychiatrist. 4. Encourage individual, group and milieu therapy. 5. Continue every 15 minute checks for safety. PDMP PDMP Reviewed: Not Reviewed Involuntary Hold Information 2 Hold Status: Legal Status: 96 Hour Hold Date/Time Hold Expires: 03/09/25 @ 11:15 96 Hour Hold: 96 Hour Involuntary Admission: Yes Attestations NPU 2 Medical Necessity Statement*: Inpatient hospitalization is medically necessary and the clinically appropriate intervention at this time. We will initiate medications and make changes as indicated. Likely length of stay 2-5 days. Coding Level of Care Code Acute Code for g Fwd Diagnoses Acute exacerbation of psychosis F29 Paranoia F22 Bipolar depression F31.9 Suicidal ideation R45.851 PTSD (post-traumatic stress disorder) F43.10
[2025-03-08 20:18] VITALS: BP 120/85; PULSE 100; RESP 18; TEMP 36.7; O2SAT 98
[2025-03-08] MEDS: hyDROXYzine 25 mg Capsule 50 MG PO (20:55)
[2025-03-08] MEDS: trazodone 50 mg Tablet PO (20:55)
[2025-03-08] MEDS: OLANZapine 5 mg ODT PO (20:56)
[2025-03-08] MEDS: BuSPIRONE 10 mg Tablet 15 MG PO (20:56)
[2025-03-09 06:00] VITALS: BP 110/75; PULSE 110; RESP 17; TEMP 36.8; O2SAT 96
[2025-03-09] MEDS: BuSPIRONE 10 mg Tablet 15 MG PO ×2 (08:24→17:24)
[2025-03-09] MEDS: fluoxetine 20 mg Capsule 40 MG PO (08:24)
[2025-03-09] MEDS: ARIPiprazole 10 mg Tablet PO (08:25)
[2025-03-09 14:00] VITALS: BP 109/72; PULSE 86; RESP 17; TEMP 36.8; O2SAT 98
--- NOTE | 2025-03-09 17:08 | P.NPUPN_ITS ---
Subjective NPU 2 Subjective: Patient presented today reporting that things are going okay. She was very upset about not leaving today and the fact that we filed a 21-day hold extension. We discussed the possibility that there may not be a hearing but that we felt she needed a few more days on the unit with the coadministration. Her significant other was here lobbying for her to be discharged. We spoke with her mother this morning and she talked about some concern surrounding the children struggling with her mental health functioning. She denies there are any concerns whatsoever. She was focused on getting home to some event they were having at school. We discussed trying to make sure that she was in the right state of mind to be parenting. She denied any side effects to the medication. Mental Status Exam 2 MSE Comments: This a well-nourished, well-developed white female in hospital scrubs with limited hygiene/grooming but appropriate eye contact. No abnormal movements except for mild psychomotor agitation. Mostly cooperative with exam and in mild distress. Speech was slightly decreased rate and volume. Mood described as feeling significantly better, affect congruent and less irritable and guarded. Thought process organized. Thought content: Patient endorsed having some suicidality on admission but denied homicidal ideation, there were no delusions reported but ultimately acknowledged continued paranoia and persecutory thinking which was noted. No auditory or visual hallucinations reported b. Attention and concentration are mostly intact and memory is appearing mostly reliable but none were formally tested. She is alert and oriented ?3. Insight, judgment and impulse control are impaired. Vitals/I&O/Wt Last Vital Signs Temp 98.3 F 03/09/25 14:00 Pulse 86 03/09/25 14:00 Resp 17 03/09/25 14:00 BP 109/72 03/09/25 14:00 Pulse Ox 98 03/09/25 14:00 O2 Del Method Room Air 03/09/25 06:00 Data NPU 03/05/25 10:38 03/05/25 10:38 A&P Assessment and plan (1) Acute exacerbation of psychosis: (2) Paranoia: (3) Bipolar depression: (4) Suicidal ideation: (5) PTSD (post-traumatic stress disorder): Plan This is a 40-year-old white female who was seen in 2022 for her third episode of aries/hypomania who presents again psychotic but seemingly more open to treatment and the realization that she is in need of every time to her medication. 1. Continue current medications. 2. Restarted Abilify 10 mg p.o. every morning. Plan to return to Abilify Maintena 400 mg IM q. monthly, if we are unable to get her approved for Abilify Asimtufii immediately. Administered Abilify injection 03/08/2025 and started coadministration of oral medication. She has 12 more days of oral medication.. 3. Recommending outpatient therapist and psychiatrist. 4. Encourage individual, group and milieu therapy. 5. Continue every 15 minute checks for safety. PDMP PDMP Reviewed: Not Reviewed Involuntary Hold Information 2 Hold Status: Legal Status: 96 Hour Hold Date/Time Hold Expires: 03/09/25 @ 11:15 96 Hour Hold: 96 Hour Involuntary Admission: Yes Attestations NPU 2 Medical Necessity Statement*: Inpatient hospitalization is medically necessary and the clinically appropriate intervention at this time. We will initiate medications and make changes as indicated. Likely length of stay 3-4 days. Coding Level of Care Code Acute Code for g Fwd Diagnoses Acute exacerbation of psychosis F29 Paranoia F22 Bipolar depression F31.9 Suicidal ideation R45.851 PTSD (post-traumatic stress disorder) F43.10
[2025-03-09 20:19] VITALS: BP 125/83; PULSE 72; RESP 17; TEMP 36.4; O2SAT 100
[2025-03-09] MEDS: OLANZapine 5 mg ODT PO (20:49)
[2025-03-09] MEDS: hyDROXYzine 25 mg Capsule 50 MG PO (20:49)
[2025-03-10 06:00] VITALS: BP 88/61; PULSE 83; RESP 16; TEMP 37.1; O2SAT 99
[2025-03-10] MEDS: fluoxetine 20 mg Capsule 40 MG PO (08:11)
[2025-03-10] MEDS: ARIPiprazole 10 mg Tablet PO (08:11)
[2025-03-10] MEDS: BuSPIRONE 10 mg Tablet 15 MG PO ×2 (08:11→17:52)
[2025-03-10 14:00] VITALS: BP 161/70; PULSE 105; RESP 16; TEMP 36.8; O2SAT 99
[2025-03-10] MEDS: OLANZapine 5 mg ODT PO (19:02)
[2025-03-10] MEDS: acetaminophen 325 mg Tablet 650 MG PO (19:02)
--- NOTE | 2025-03-10 19:11 | P.NPUPN_ITS ---
Subjective NPU 2 Subjective: Patient presented today reporting that she is doing right. There are staff reports of her being quite paranoid today talking about having feeling about somebody she used to work with at the [facility]'s department not being okay. She is reportedly frantic about getting a hold of this person and doing a wellness check because of this feeling. She was frustrated about still being here but was able to be redirected. She denied any side effects of the medication and continue to report a plan that she would take her medication as prescribed if she was discharged. Mental Status Exam 2 MSE Comments: This a well-nourished, well-developed white female in hospital scrubs with limited hygiene/grooming but appropriate eye contact. No abnormal movements except for mild psychomotor agitation. Mostly cooperative with exam and in mild distress. Speech was slightly decreased rate and volume. Mood described as feeling significantly better, affect congruent and less irritable and guarded. Thought process organized. Thought content: Patient endorsed having some suicidality on admission but denied homicidal ideation, there were no delusions reported but ultimately acknowledged continued paranoia and persecutory thinking which was noted. No auditory or visual hallucinations reported b. Attention and concentration are mostly intact and memory is appearing mostly reliable but none were formally tested. She is alert and oriented ?3. Insight, judgment and impulse control are impaired. Vitals/I&O/Wt Last Vital Signs Temp 98.2 F 03/10/25 14:00 Pulse 105 H 03/10/25 14:00 Resp 16 03/10/25 14:00 BP 161/70 03/10/25 14:00 Pulse Ox 99 03/10/25 14:00 O2 Del Method Room Air 03/10/25 06:00 Data NPU 03/05/25 10:38 03/05/25 10:38 A&P Assessment and plan (1) Acute exacerbation of psychosis: (2) Paranoia: (3) Bipolar depression: (4) Suicidal ideation: (5) PTSD (post-traumatic stress disorder): Plan This is a 40-year-old white female who was seen in 2022 for her third episode of aries/hypomania who presents again psychotic but seemingly more open to treatment and the realization that she is in need of every time to her medication. 1. Continue current medications. 2. Restarted Abilify 10 mg p.o. every morning. Plan to return to Abilify Maintena 400 mg IM q. monthly, if we are unable to get her approved for Abilify Asimtufii immediately. Administered Abilify injection 03/08/2025 and started coadministration of oral medication. She has 11 more days of oral medication.. 3. Recommending outpatient therapist and psychiatrist. 4. Encourage individual, group and milieu therapy. 5. Continue every 15 minute checks for safety. PDMP PDMP Reviewed: Not Reviewed Involuntary Hold Information 2 Hold Status: Legal Status: 96 Hour Hold Date/Time Hold Expires: 03/09/25 @ 11:15 96 Hour Hold: 96 Hour Involuntary Admission: Yes Attestations NPU 2 Medical Necessity Statement*: Inpatient hospitalization is medically necessary and the clinically appropriate intervention at this time. We will initiate medications and make changes as indicated. Likely length of stay 2-4 days. Coding Level of Care Code Acute Code for Chg Fwd Diagnoses Acute exacerbation of psychosis F29 Paranoia F22 Bipolar depression F31.9 Suicidal ideation R45.851 PTSD (post-traumatic stress disorder) F43.10
[2025-03-10] MEDS: trazodone 50 mg Tablet PO (21:02)
[2025-03-10] MEDS: hyDROXYzine 25 mg Capsule 50 MG PO (21:02)
[2025-03-10 22:00] VITALS: BP 114/75; PULSE 93; RESP 17; TEMP 36.7; O2SAT 98
[2025-03-11 04:18] VITALS: BMI 27.4
[2025-03-11 06:00] VITALS: BP 101/68; PULSE 74; RESP 16; TEMP 36.7; O2SAT 96
[2025-03-11] MEDS: fluoxetine 20 mg Capsule 40 MG PO (08:13)
[2025-03-11] MEDS: ARIPiprazole 10 mg Tablet PO (08:13)
[2025-03-11] MEDS: BuSPIRONE 10 mg Tablet 15 MG PO ×2 (08:14→17:32)
--- NOTE | 2025-03-11 11:38 | P.NPUPN_ITS ---
Subjective NPU 2 Subjective: Patient presented today reporting that she is excepting her current situation and we discussed the fact that the plan was for likely discharge tomorrow. We discussed the fact that we would not likely be going through a hearing which she was wondering whether she needed to get her own assembly person or whether this public health administrator would be able to provide any support to her desire to leave. She was much more comfortable discussing the fact that she might have paranoia. She denied any side effects to the medication and promised that she would be taking her medicine this time after discharge. Mental Status Exam 2 MSE Comments: This a well-nourished, well-developed white female in hospital scrubs with limited hygiene/grooming but appropriate eye contact. No abnormal movements except for mild psychomotor agitation. Mostly cooperative with exam in mild distress. Speech was slightly decreased rate and volume. Mood described as feeling better, affect congruent and less irritable and guarded. Thought process organized. Thought content: Patient denied suicidal or homicidal ideation, there were no delusions reported but ultimately acknowledge resolving paranoia and persecutory thinking which was noted. No auditory or visual hallucinations reported b. Attention and concentration are mostly intact and memory is appearing mostly reliable but none were formally tested. She is alert and oriented ?3. Insight, judgment and impulse control are limited but improving. Vitals/I&O/Wt Last Vital Signs Temp 98.1 F 03/11/25 06:00 Pulse 74 03/11/25 06:00 Resp 16 03/11/25 06:00 BP 101/68 03/11/25 06:00 Pulse Ox 96 03/11/25 06:00 O2 Del Method Room Air 03/11/25 06:00 Weight last 48 hrs Weight 79.549 kg Data NPU 03/05/25 10:38 03/05/25 10:38 A&P Assessment and plan (1) Acute exacerbation of psychosis: (2) Paranoia: (3) Bipolar depression: (4) Suicidal ideation: (5) PTSD (post-traumatic stress disorder): Plan This is a 40-year-old white female who was seen in 2022 for her third episode of aries/hypomania who presents again psychotic but seemingly more open to treatment and the realization that she is in need of every time to her medication. 1. Continue current medications. 2. Restarted Abilify 10 mg p.o. every morning. Plan to return to Abilify Maintena 400 mg IM q. monthly, if we are unable to get her approved for Abilify Asimtufii immediately. Administered Abilify injection 03/08/2025 and started coadministration of oral medication. She has 10 more days of oral medication.. 3. Recommending outpatient therapist and psychiatrist. 4. Encourage individual, group and milieu therapy. 5. Continue every 15 minute checks for safety. PDMP PDMP Reviewed: Not Reviewed Involuntary Hold Information 2 Hold Status: Legal Status: 96 Hour Hold Date/Time Hold Expires: 03/09/25 @ 11:15 96 Hour Hold: 96 Hour Involuntary Admission: Yes Attestations NPU 2 Medical Necessity Statement*: Inpatient hospitalization is medically necessary and the clinically appropriate intervention at this time. We will initiate medications and make changes as indicated. Likely length of stay 1-3 days. Coding Level of Care Code Acute Code for g Fwd Diagnoses Acute exacerbation of psychosis F29 Paranoia F22 Bipolar depression F31.9 Suicidal ideation R45.851 PTSD (post-traumatic stress disorder) F43.10
[2025-03-11 14:00] VITALS: BP 109/79; PULSE 81; RESP 16; O2SAT 98
[2025-03-11] MEDS: OLANZapine 5 mg ODT PO (20:02)
[2025-03-11 21:24] VITALS: BP 108/77; PULSE 81; RESP 18; TEMP 36.8; O2SAT 99
[2025-03-11] MEDS: trazodone 50 mg Tablet PO (21:31)
[2025-03-12 06:00] VITALS: BP 97/58; PULSE 83; RESP 16; TEMP 36.6; O2SAT 97
[2025-03-12] MEDS: fluoxetine 20 mg Capsule 40 MG PO (07:26)
[2025-03-12] MEDS: ARIPiprazole 10 mg Tablet PO (07:27)
[2025-03-12] MEDS: BuSPIRONE 10 mg Tablet 15 MG PO (07:27)
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
[2025-03-12 13:57] VITALS: BP 97/58; PULSE 83; RESP 16; TEMP 36.6; O2SAT 97
== END 2025-03-12 14:28 | disposition home or self-care (01) | DRG 885 ==
LOC: ER 11:15 → NP 13:28
PROVIDERS: Admitting Provider Psychiatry & Neurology Psychiatry; Emergency Provider Family Medicine; PCP Registered Nurse; Visit Provider Psychiatry & Neurology Psychiatry
DX: F23 Brief psychotic disorder (principal); R45.851 Suicidal ideations; F31.5 Bipolar disorder, current episode depressed, severe, with psychotic features; F43.10 Post-traumatic stress disorder, unspecified; H91.92 Unspecified hearing loss, left ear; R42 Dizziness and giddiness
CPT/HCPCS: 36415; 80053; 80306; 80307; 84703; 85025; 96372; 97150; 97165; 99285; J9999